=== PATIENT | female | born 1965 | race Caucasian/White ===

== ENCOUNTER 2020-09-18 06:53 | Inpatient (IN) | payer OTHER ==
[2020-09-17 16:17] VITALS: BMI 38.2
[2020-09-18] MEDS ORDERED: MIDAZOLAM HCL 2 MG/2 ML SINGLE DOSE VIAL ONE ×2 (10:18)
[2020-09-18] MEDS ORDERED: DEXAMETHASONE SOD PHOSPHATE 4 MG/1 ML VIAL IVPUSH PRN (10:34)
[2020-09-18] MEDS ORDERED: ONDANSETRON 4 MG/2 ML VIAL IVPUSH PRN ×3 (10:34→10:50)
[2020-09-18] MEDS ORDERED: PROMETHAZINE HCL 25 MG/1 ML VIAL IVPB PRN ×2 (10:34)
[2020-09-18] MEDS ORDERED: LACTATED RINGERS SOLUTION 1,000 ML IV SCH (10:45)
[2020-09-18] MEDS ORDERED: HYDROmorphone *PCA* 10MG/50ML DISP.SYRIN PCA SCH (10:45)
[2020-09-18] MEDS ORDERED: oxyCODONE HCL 5 MG TABLET PO PRN (10:50)
[2020-09-18] MEDS ORDERED: IBUPROFEN 800 MG/8 ML IJ IVPB PRN (10:50)
[2020-09-18] MEDS ORDERED: ELECTROLYTE-148 SOLN 1,000 ML IV SCH (11:00)
[2020-09-18] MEDS ORDERED: PROPOFOL 20 ML ONE ×2 (11:03→12:25)
[2020-09-18] MEDS ORDERED: ROCURONIUM BROMIDE 100 MG/10 ML VIAL ONE (11:03)
[2020-09-18] MEDS ORDERED: LIDOCAINE HCL/PF 2% SDV 5ML VIAL ONE (11:08)
[2020-09-18] MEDS ORDERED: SCOPOLAMINE HYDROBROMIDE 1 PATCH PATCH.TD72 ONE (11:26)
[2020-09-18] MEDS ORDERED: ceFAZolin SODIUM 1 GM VIAL ONE (11:27)
[2020-09-18] MEDS ORDERED: ceFAZolin SODIUM 1 GM VIAL IVPB ONE (11:27)
[2020-09-18] MEDS ORDERED: BENZOIN/ALOE VERA/STORAX/TOLU 58 ML BOTTLE ONE (12:21)
[2020-09-18] MEDS ORDERED: NEOSTIGMINE METHYLSULFATE 0.5 MG/ML - 10 ML MDV ONE (12:21)
[2020-09-18] MEDS ORDERED: GLYCOPYRROLATE 0.2 MG/1 ML VIAL ONE (12:21)
[2020-09-18] MEDS ORDERED: ONDANSETRON 4 MG/2 ML VIAL ONE (13:15)
[2020-09-18] MEDS ORDERED: IBUPROFEN 800 MG/8 ML IJ IVPB ONE (14:19)
[2020-09-18] MEDS ORDERED: HYDROmorphone HCl 2 MG/ML VIAL ONE (14:47)
[2020-09-18] MEDS ORDERED: HYDROmorphone HCl 2 MG/ML VIAL IVPUSH PRN (15:15)
[2020-09-18] MEDS: IBUPROFEN 600 MG TABLET (FP) PO PRN (20:22)
[2020-09-19] MEDS: IBUPROFEN 600 MG TABLET (FP) PO PRN ×4 (04:44→21:01)
[2020-09-19] MEDS ORDERED: ENOXAPARIN NA (PORCINE) 40 MG/0.4 ML DISP.SYRIN SQ ONE (11:30)
[2020-09-19] MEDS ORDERED: LEVOTHYROXINE NA 200 MCG TABLET PO SCH (12:15)
[2020-09-19 12:27] LABS: BASO % 0.9 % (0-2.0); EOS % 4.7 % (0-4.5); HEMATOCRIT 37.7 % (32.4-45.2); HEMOGLOBIN 12.7 GM/dL (10.7-15.3); LYMPH % 21.6 % (8-40); MCHC 33.8 g/dl (32.0-36.0); MEAN CELL VOLUME 85.9 fl (80-96); MEAN PLT VOLUME 7.2 fl (7.5-11.1); MONO % 5.8 % (3.8-10.2); PLATELET COUNT 349 K/MM3 (134-434); RBC 4.39 M/mm3 (3.60-5.2)
[2020-09-19] MEDS: PARoxetine HCL 20 MG TABLET PO SCH (14:21)
[2020-09-19] MEDS: LOSARTAN POTASSIUM 50 MG TABLET PO SCH (14:22)
[2020-09-19] MEDS: HYDROCHLOROTHIAZIDE 25 MG TABLET (FP) PO SCH (15:47)
[2020-09-20] MEDS: IBUPROFEN 600 MG TABLET (FP) PO PRN ×2 (05:44→11:04)
[2020-09-20] MEDS ORDERED: LEVOTHYROXINE NA 100 MCG TABLET (FP) PO SCH (05:48)
[2020-09-20] MEDS: HYDROCHLOROTHIAZIDE 25 MG TABLET (FP) PO SCH (09:52)
[2020-09-20] MEDS: PARoxetine HCL 20 MG TABLET PO SCH (09:52)
[2020-09-20] MEDS: LOSARTAN POTASSIUM 50 MG TABLET PO SCH (09:52)
[2020-09-20 11:24] VITALS: BP 105/71; PULSE 98; TEMP 97.9
== END 2020-09-20 11:18 | disposition home or self-care (01) | DRG 743 ==
LOC: J2C 06:53 → J3W 15:30
PROVIDERS: ADMIT Obstetrics & Gynecology; ATTEND Obstetrics & Gynecology
PROC: 0UT70ZZ Resection of Bilateral Fallopian Tubes, Open Approach (ICD-10-PCS; 2020-09-18)
PROC: 0UT90ZL Resection of Uterus, Supracervical, Open Approach (ICD-10-PCS; principal; 2020-09-18 10:00)
DX: D25.9 Leiomyoma of uterus, unspecified (principal); N80.0 Endometriosis of uterus; N95.0 Postmenopausal bleeding
CPT/HCPCS: 36415; 71046-TC-FY; 84703; 85025; 86850; 86900; 86901; 88302-TC; 88307-TC; 93005; 93010; 94010; 94760